=== PATIENT | male | born 1980 | race Caucasian/White ===

== ENCOUNTER 2023-05-10 07:32 | Day surgery (SDC) | payer OTHER ==
[~2023-05-10] VITALS: Ht 167.6 cm; Wt 64.4 kg
[2023-05-10] MEDS ORDERED: MIDAZOLAM 5 MG/5 ML VIAL ONE (10:11)
[2023-05-10] MEDS ORDERED: fentaNYL citrate 0.05 MG/ML VIAL ONE (10:11)
[2023-05-10] MEDS ORDERED: LIDOCAINE 2% 100 MG/5 ML UJET TP ONE (10:12)
[2023-05-10] MEDS: fentaNYL citrate 0.05 MG/ML VIAL IVP ONE (10:25)
== END 2023-05-10 11:10 | disposition home or self-care (01) ==
LOC: MOR 07:32 → MMU 07:33 → MOR 11:10
PROVIDERS: ATTEND Internal Medicine Gastroenterology
DX: K62.5 Hemorrhage of anus and rectum (principal); K64.9 Unspecified hemorrhoids; K63.5 Polyp of colon; J45.909 Unspecified asthma, uncomplicated; Z88.0 Allergy status to penicillin; Z90.49 Acquired absence of other specified parts of digestive tract; Z79.899 Other long term (current) drug therapy; Z98.890 Other specified postprocedural states
CPT/HCPCS: 45380; J3010; J2250